=== PATIENT | female | born 1950 | race Hispanic/Latino ===

== ENCOUNTER 2018-04-01 10:07 | Day surgery (SDC) | payer OTHER ==
[~2018-04-01] VITALS: Ht 160 cm; Wt 68.3 kg
[2018-04-01 12:04] VITALS: BP 136/52
[2018-04-01] MEDS ORDERED: [UNRECOGNIZED DRUG - OTHER] PO (12:36)
[2018-04-01] MEDS ORDERED: ATEN50TA PO (12:36)
[2018-04-01] MEDS ORDERED: OMEP20TA25 PO (12:36)
[2018-04-01] MEDS ORDERED: SODIUM CHLORIDE 0.9% 1000ML 1,000 ML IV ONE (12:40)
[2018-04-01] MEDS ORDERED: MIDAZOLAM HCL 1 MG/ML 2ML VIAL ONE (12:49)
[2018-04-01 13:12] VITALS: BP 100/39
== END 2018-04-01 13:42 | disposition home or self-care (01) ==
LOC: DAH 10:07
PROVIDERS: ATTEND Internal Medicine Gastroenterology
DX: D12.2 Benign neoplasm of ascending colon (principal); K63.5 Polyp of colon; Z68.29 Body mass index [BMI] 29.0-29.9, adult; K57.30 Diverticulosis of large intestine without perforation or abscess without bleeding; R00.1 Bradycardia, unspecified; Z98.890 Other specified postprocedural states; Z79.899 Other long term (current) drug therapy
CPT/HCPCS: 45380; 93005; A4606; J2250; J7030